=== PATIENT | female | born 1975 | race Caucasian/White ===

== ENCOUNTER 2016-08-08 21:12 | Emergency (ER) | payer MEDICAID ==
[2016-08-09 01:21] VITALS: BP 161/106
== END 2016-08-09 01:00 | disposition home or self-care (01) ==
LOC: ED 21:12
DX: N75.1 Abscess of Bartholin's gland (principal); H57.8 Other specified disorders of eye and adnexa; J45.909 Unspecified asthma, uncomplicated; Z91.018 Allergy to other foods
CPT/HCPCS: J3490

== ENCOUNTER 2017-05-10 09:59 | Inpatient (IN) | payer MEDICAID ==
[~2017-05-10] VITALS: Ht 168.9 cm; Wt 94.5 kg
[2017-05-10 10:06] VITALS: Ht 168.9 cm; Wt 94.5 kg
[2017-05-10 12:03] LABS: BASOPHIL % 0.2 % (0-2)
[2017-05-10 12:11] LABS: CALCIUM 8.7 mg/dL (8.5-10.1); CARBON DIOXIDE 30.1 mmol/L (21-32); CHLORIDE SERUM 101 mmol/L (98-107); CREATININE SERUM 0.8 mg/dL (0.6-1.0); GFR1 > 60 mL/min; GLUCOSE SERUM 103 mg/dL (74-106); POTASSIUM SERUM 3.2 mmol/L (3.5-5.1); SODIUM SERUM 137 mmol/L (136-145)
[2017-05-10 12:15] LABS: ALBUMIN 3.5 g/dL (3.4-5.0); ALKALINE PHOSPHATASE 64 U/L (46-116); ALT/SGPT 42 U/L (14-59); AST/SGOT 50 U/L (15-37); BILIRUBIN TOTAL 0.66 mg/dL (0.20-1.00); TOTAL PROTEIN, SERUM 7.8 g/dL (6.4-8.2)
[2017-05-10 12:17] LABS: PLATELET COUNT 455 x10^3mcL (130-400); RED CELL DISTRIBUTION WIDTH 14.9 % (11.5-14.5)
[2017-05-10] MEDS ORDERED: LEVOTHYROXIN0.075 M2 PO (12:54)
[2017-05-10] MEDS ORDERED: SOMA350 MG PO (12:54)
[2017-05-10] MEDS ORDERED: PHEDML PO (12:54)
[2017-05-10] MEDS ORDERED: NEU300 PO (12:54)
[2017-05-10] MEDS ORDERED: VENTOLIN H0.09 MG/A1 INH (12:55)
[2017-05-10 13:38] LABS: CHOLESTEROL/HDL RATIO 4.2; MAGNESIUM 2.1 mg/dL (1.8-2.4); PHOSPHOROUS 2.9 mg/dL (2.5-4.9)
[2017-05-10 13:43] LABS: T3 TOTAL 0.24 ng/mL
[2017-05-10 13:45] LABS: FREE T4 0.2 ng/dL (0.76-1.46)
[2017-05-10 14:12] LABS: FREE THYROXINE INDEX 0.2 ug/dL (1.4-4.5); T4(THYROXINE) 0.7 ug/dL (4.7-13.3)
[2017-05-10 14:31] VITALS: BP 117/61
[2017-05-10 17:21] VITALS: BP 120/76
[2017-05-10 17:30] LABS: microscopic required? YES; urine erythrocyte 2+ (NEGATIVE)
[2017-05-10 18:07] LABS: AMPHETAMINE QUAL UR NONE DETECTED (NEG <=1000)
[2017-05-10 21:20] VITALS: BP 119/74
[2017-05-11 05:49] VITALS: BP 125/78
[2017-05-11 06:49] LABS: BASOPHIL % 0 % (0-2); PLATELET COUNT 487 x10^3mcL (130-400); RED CELL DISTRIBUTION WIDTH 15.5 % (11.5-14.5)
[2017-05-11 06:55] LABS: CALCIUM 8.7 mg/dL (8.5-10.1); CARBON DIOXIDE 25.3 mmol/L (21-32); CHLORIDE SERUM 101 mmol/L (98-107); CREATININE SERUM 0.9 mg/dL (0.6-1.0); GFR1 > 60 mL/min; GLUCOSE SERUM 199 mg/dL (74-106); MAGNESIUM 2.4 mg/dL (1.8-2.4); PHOSPHOROUS 2.6 mg/dL (2.5-4.9); POTASSIUM SERUM 4.4 mmol/L (3.5-5.1); SODIUM SERUM 137 mmol/L (136-145)
[2017-05-11 10:16] VITALS: BP 107/67
[2017-05-11 14:14] VITALS: BP 116/73
[2017-05-11 17:44] VITALS: BP 121/79
[2017-05-11 21:28] VITALS: BP 117/84
[2017-05-12 06:02] VITALS: BP 103/61
[2017-05-12 07:04] LABS: CALCIUM 8.6 mg/dL (8.5-10.1); CARBON DIOXIDE 27.1 mmol/L (21-32); CHLORIDE SERUM 104 mmol/L (98-107); CREATININE SERUM 0.9 mg/dL (0.6-1.0); GFR1 > 60 mL/min; GLUCOSE SERUM 118 mg/dL (74-106); POTASSIUM SERUM 4.7 mmol/L (3.5-5.1); SODIUM SERUM 138 mmol/L (136-145)
[2017-05-12 07:44] LABS: PLATELET COUNT 497 x10^3mcL (130-400); RED CELL DISTRIBUTION WIDTH 15.2 % (11.5-14.5)
[2017-05-12 09:56] VITALS: BP 118/81
[2017-05-12 12:32] LABS: BAND NEUTROPHIL 2 % (0-10); BASOPHIL 0 % (0-2); MONOCYTE 1 % (0-7); SEGMENTED NEUTROPHILS 93 % (37-75)
[2017-05-12 12:33] LABS: PLATELET MORPHOLOGY PLATELETS NORMAL; rbc morphology (normal/abnorm) ABNORMAL (NORMAL)
[2017-05-12 18:30] VITALS: BP 133/94
[2017-05-12 20:17] VITALS: BP 105/68
[2017-05-13 05:41] VITALS: BP 107/65
[2017-05-13 08:03] LABS: CHLORIDE SERUM 103 mmol/L (98-107); CREATININE SERUM 0.8 mg/dL (0.6-1.0); GFR1 > 60 mL/min; GLUCOSE SERUM 93 mg/dL (74-106); MAGNESIUM 2.5 mg/dL (1.8-2.4); PHOSPHOROUS 3.1 mg/dL (2.5-4.9); POTASSIUM SERUM 4.6 mmol/L (3.5-5.1); SODIUM SERUM 140 mmol/L (136-145)
[2017-05-13 08:37] LABS: PLATELET COUNT 512 x10^3mcL (130-400); RED CELL DISTRIBUTION WIDTH 15.3 % (11.5-14.5)
[2017-05-13 10:00] VITALS: BP 132/90
[2017-05-13 11:50] LABS: ATYPICAL LYMPH 2 %; BAND NEUTROPHIL 1 % (0-10); BASOPHIL 0 % (0-2); MONOCYTE 2 % (0-7); SEGMENTED NEUTROPHILS 87 % (37-75)
[2017-05-13 11:51] LABS: PLATELET MORPHOLOGY PLATELETS INCREASED; rbc morphology (normal/abnorm) ABNORMAL (NORMAL)
[2017-05-13 13:22] VITALS: BP 133/85
[2017-05-13 17:29] VITALS: BP 116/75
[2017-05-13 21:05] VITALS: BP 111/70
[2017-05-14 05:45] VITALS: BP 129/84
[2017-05-14 07:05] LABS: CALCIUM 8.7 mg/dL (8.5-10.1); CARBON DIOXIDE 32.6 mmol/L (21-32); CHLORIDE SERUM 100 mmol/L (98-107); GFR1 > 60 mL/min; GLUCOSE SERUM 107 mg/dL (74-106); MAGNESIUM 2.3 mg/dL (1.8-2.4); PHOSPHOROUS 3.8 mg/dL (2.5-4.9); POTASSIUM SERUM 4.5 mmol/L (3.5-5.1); SODIUM SERUM 140 mmol/L (136-145)
[2017-05-14 07:10] LABS: RED CELL DISTRIBUTION WIDTH 15.2 % (11.5-14.5)
[2017-05-14 07:12] LABS: PLATELET COUNT 547 x10^3mcL (130-400)
[2017-05-14 08:16] LABS: ATYPICAL LYMPH 2 %; BAND NEUTROPHIL 2 % (0-10); BASOPHIL 0 % (0-2); MONOCYTE 6 % (0-7); PLATELET MORPHOLOGY PLATELETS INCREASED; SEGMENTED NEUTROPHILS 81 % (37-75); rbc morphology (normal/abnorm) ABNORMAL (NORMAL)
[2017-05-14 09:07] VITALS: BP 133/78
[2017-05-14 13:34] VITALS: BP 125/78
[2017-05-14 16:53] VITALS: BP 131/92
[2017-05-14 17:40] VITALS: BP 131/92
[2017-05-14 21:54] VITALS: BP 123/74
[2017-05-15 05:46] VITALS: BP 117/81
[2017-05-15 07:04] LABS: CALCIUM 9.4 mg/dL (8.5-10.1); CARBON DIOXIDE 32.1 mmol/L (21-32); CHLORIDE SERUM 97 mmol/L (98-107); CREATININE SERUM 0.8 mg/dL (0.6-1.0); GFR1 > 60 mL/min; GLUCOSE SERUM 111 mg/dL (74-106); PLATELET COUNT 559 x10^3mcL (130-400); POTASSIUM SERUM 4.2 mmol/L (3.5-5.1); RED CELL DISTRIBUTION WIDTH 15.5 % (11.5-14.5); SODIUM SERUM 137 mmol/L (136-145)
[2017-05-15 09:12] VITALS: BP 141/89
[2017-05-15 09:47] LABS: BAND NEUTROPHIL 13 % (0-10); BASOPHIL 0 % (0-2); METAMYELOCTE 2 % (0-2); MONOCYTE 6 % (0-7); MYELOCYTE 2 % (0-2); PLATELET MORPHOLOGY LARGE PLATELET SEEN; SEGMENTED NEUTROPHILS 63 % (37-75); rbc morphology (normal/abnorm) ABNORMAL (NORMAL); tear drop cell (dacryocyte) 1+
[2017-05-15 21:04] VITALS: BP 116/72
[2017-05-16 05:30] VITALS: BP 129/84
[2017-05-16 07:19] LABS: CALCIUM 8.4 mg/dL (8.5-10.1); CHLORIDE SERUM 101 mmol/L (98-107); GFR1 > 60 mL/min; GLUCOSE SERUM 97 mg/dL (74-106); POTASSIUM SERUM 4.5 mmol/L (3.5-5.1); SODIUM SERUM 141 mmol/L (136-145)
[2017-05-16 08:11] LABS: RED CELL DISTRIBUTION WIDTH 15.5 % (11.5-14.5)
[2017-05-16 08:12] LABS: PLATELET COUNT 552 x10^3mcL (130-400)
[2017-05-16 09:03] LABS: ATYPICAL LYMPH 3 %; BAND NEUTROPHIL 2 % (0-10); BASOPHIL 0 % (0-2); MONOCYTE 6 % (0-7); PLATELET MORPHOLOGY PLATELETS INCREASED; SEGMENTED NEUTROPHILS 48 % (37-75); rbc morphology (normal/abnorm) ABNORMAL (NORMAL)
[2017-05-16 09:50] VITALS: BP 97/54
[2017-05-16 09:55] VITALS: BP 116/80
[2017-05-16 17:13] VITALS: BP 132/71
[2017-05-16 20:47] VITALS: BP 108/54
[2017-05-17 05:35] VITALS: BP 121/85
[2017-05-17 06:57] LABS: CALCIUM 9.3 mg/dL (8.5-10.1); CARBON DIOXIDE 28.2 mmol/L (21-32); CHLORIDE SERUM 99 mmol/L (98-107); CREATININE SERUM 0.7 mg/dL (0.6-1.0); GFR1 > 60 mL/min; GLUCOSE SERUM 120 mg/dL (74-106); SODIUM SERUM 135 mmol/L (136-145)
[2017-05-17 07:26] LABS: PLATELET COUNT 514 x10^3mcL (130-400); RED CELL DISTRIBUTION WIDTH 15.7 % (11.5-14.5)
[2017-05-17 09:13] LABS: BAND NEUTROPHIL 9 % (0-10); BASOPHIL 0 % (0-2); METAMYELOCTE 2 % (0-2); MONOCYTE 2 % (0-7); SEGMENTED NEUTROPHILS 73 % (37-75)
[2017-05-17 09:14] LABS: PLATELET MORPHOLOGY PLATELETS DECREASED; rbc morphology (normal/abnorm) ABNORMAL (NORMAL)
[2017-05-17] MEDS ORDERED: MEDDP PO (10:23)
[2017-05-17 10:33] VITALS: BP 123/60
[2017-05-17 11:19] VITALS: BP 123/60
[2017-05-17] MEDS ORDERED: ASMANEX TW0.22 MG/A1 IH (11:31)
[2017-05-17] MEDS ORDERED: PULMICORT180 MCG/Ac INH (11:44)
[2017-05-17] MEDS ORDERED: SINGULAIR10 MG PO (11:51)
== END 2017-05-17 13:53 | disposition home or self-care (01) | DRG 139 ==
LOC: ED 09:59 → MU 12:22 → DU 12:22 → MU 05-11 17:00
PROVIDERS: Emergency Medicine; Family Medicine; Student in an Organized Health Care Education/Training Program
DX: J18.9 Pneumonia, unspecified organism (principal); J96.01 Acute respiratory failure with hypoxia; N17.0 Acute kidney failure with tubular necrosis; J45.901 Unspecified asthma with (acute) exacerbation; K21.9 Gastro-esophageal reflux disease without esophagitis; F17.210 Nicotine dependence, cigarettes, uncomplicated; D72.829 Elevated white blood cell count, unspecified; E78.5 Hyperlipidemia, unspecified; E03.9 Hypothyroidism, unspecified; N39.0 Urinary tract infection, site not specified; R31.9 Hematuria, unspecified; G56.00 Carpal tunnel syndrome, unspecified upper limb; R73.03 Prediabetes; D64.9 Anemia, unspecified; Z91.018 Allergy to other foods; Z91.040 Latex allergy status; Z90.49 Acquired absence of other specified parts of digestive tract; Z68.34 Body mass index [BMI] 34.0-34.9, adult; Z79.899 Other long term (current) drug therapy
CPT/HCPCS: 36600; 83880; 84439; 87804; 94150; 97110-GP; 97116-GP; 97530-GP; 99406; J0696; J1885; J2920; J2930; J7030; J7512; J7613; J7620; J7633; J7644; J8540; Q0092

== ENCOUNTER 2017-08-03 18:10 | Emergency (ER) | payer MEDICAID ==
[~2017-08-03] VITALS: Ht 170.2 cm; Wt 81.6 kg
[~2017-08-03 18:10] MED LIST: ASMANEX TW0.22 MG/A1 IH; LEVOTHYROXIN0.075 M2 PO; MEDDP PO; NEU300 PO; PHEDML PO; PULMICORT180 MCG/Ac INH; SINGULAIR10 MG PO; SOMA350 MG PO; VENTOLIN H0.09 MG/A1 INH
[2017-08-03 18:17] VITALS: Ht 170.2 cm; Wt 81.6 kg
[2017-08-03 22:12] VITALS: BP 117/79
== END 2017-08-03 22:12 | disposition home or self-care (01) ==
LOC: ED 18:10
DX: S93.401A Sprain of unspecified ligament of right ankle, initial encounter (principal); J45.909 Unspecified asthma, uncomplicated; Z90.49 Acquired absence of other specified parts of digestive tract; Z88.8 Allergy status to other drugs, medicaments and biological substances; X58.XXXA Exposure to other specified factors, initial encounter; Y93.89 Activity, other specified; Y92.89 Other specified places as the place of occurrence of the external cause; Y99.8 Other external cause status

== ENCOUNTER 2017-09-21 17:46 | Emergency (ER) | payer MEDICAID ==
[~2017-09-21] VITALS: Ht 167.6 cm; Wt 99.8 kg
[2017-09-21 17:54] VITALS: Ht 167.6 cm; Wt 99.8 kg
[2017-09-21 18:29] LABS: BASOPHIL % 1.2 % (0-2); PLATELET COUNT 338 x10^3mcL (130-400); RED CELL DISTRIBUTION WIDTH 15.1 % (11.5-14.5)
[2017-09-21 18:40] LABS: CALCIUM 9.1 mg/dL (8.5-10.1); CARBON DIOXIDE 29.7 mmol/L (21-32); CHLORIDE SERUM 103 mmol/L (98-107); CREATININE SERUM 0.9 mg/dL (0.6-1.0); GFR1 > 60 mL/min; GLUCOSE SERUM 96 mg/dL (74-106); POTASSIUM SERUM 3.7 mmol/L (3.5-5.1); SODIUM SERUM 139 mmol/L (136-145)
[2017-09-21 18:42] LABS: ALBUMIN 3.9 g/dL (3.4-5.0); ALKALINE PHOSPHATASE 62 U/L (46-116); ALT/SGPT 33 U/L (14-59); AST/SGOT 24 U/L (15-37); BILIRUBIN TOTAL 0.3 mg/dL (0.20-1.00); TOTAL PROTEIN, SERUM 7.6 g/dL (6.4-8.2)
[2017-09-21 19:40] VITALS: BP 123/72
== END 2017-09-21 19:44 | disposition home or self-care (01) ==
LOC: ED 17:46
PROVIDERS: Emergency Medicine
DX: J20.9 Acute bronchitis, unspecified (principal); J45.909 Unspecified asthma, uncomplicated; Z91.048 Other nonmedicinal substance allergy status; Z90.49 Acquired absence of other specified parts of digestive tract
CPT/HCPCS: 36415; J7620; Q0092